=== PATIENT | female | born 1980 | race Caucasian/White ===

== ENCOUNTER 2019-09-01 23:56 | Emergency (ER) | payer SELFPAY ==
[2019-09-02 00:50] VITALS: BP 155/83; PULSE 99; RESP 20; TEMP 36.3; O2SAT 100
[2019-09-02 01:02] VITALS: RESP 20; O2SAT 100
--- NOTE | 2019-09-02 01:08 | ED.EXTPRO ---
HPI - Extremity Problem General Chief complaint: Extremity Problem,Nontraumatic Stated complaint: left hip/groin pain radiating down leg Time Seen by Provider: 09/02/19 01:01 Source: patient and RN notes reviewed Mode of arrival: ambulatory Limitations: no limitations History of Present Illness HPI Narrative: A lt hip pain that radiates into her lt gorin and LLE for a couple days got more severe tonight LLQ no constipation, Related Data Allergies Allergy/AdvReac Type Severity Reaction Status Date / Time Penicillins Allergy Severe Anaphylactic Verified 09/02/19 01:00 Shock acetaminophen [From Vicodin] Allergy Intermediate Nausea and Verified 09/02/19 01:00 Vomiting codeine Allergy Intermediate Nausea and Verified 09/02/19 01:00 [From Tylenol-Codeine #3] Vomiting hydrocodone [From Vicodin] Allergy Intermediate Nausea and Verified 09/02/19 01:00 Vomiting Course Vital Signs Vital signs: Vital Signs Temperature 97.4 F L 09/02/19 00:50 Pulse Rate 99 09/02/19 00:50 Respiratory Rate 20 09/02/19 00:50 Blood Pressure 155/83 H 09/02/19 00:50 Pulse Oximetry 100 09/02/19 00:50 Temperature 97.4 F L 09/02/19 00:50 Pulse Rate 99 09/02/19 00:50 Respiratory Rate 20 09/02/19 01:02 Blood Pressure 155/83 H 09/02/19 00:50 Pulse Oximetry 100 09/02/19 01:02
--- NOTE | 2019-09-02 01:11 | ED.ABDPAIN ---
HPI - Abdominal Pain General Chief Complaint: Extremity Problem,Nontraumatic Stated Complaint: left hip/groin pain radiating down leg Time Seen by Provider: 09/02/19 01:01 Source: patient and RN notes reviewed Mode of arrival: ambulatory Limitations: no limitations History of Present Illness HPI narrative: A 39 y/o female presents to the ED with worsening, intermittent, sharp, LLQ ABD apin for the past couple days. She states that the pain got more severe tonight so she decided to come to the ED. She reports associated urinary frequency. She also notes that the pain radiates into her lt groin and LLE. She denies any constipation, back pain, N/V/D, leg edema, dysuria, or hematuria. MD elicited complaint: abdominal pain Onset (ago): day(s) (a couple) Pain Consistency: intermittent and other (worsening) Location: LLQ Quality: sharp Radiation: other (lt groin and LLE) Associated symptoms: other (urinary frequency) Related Data Allergies Allergy/AdvReac Type Severity Reaction Status Date / Time Penicillins Allergy Severe Anaphylactic Verified 09/02/19 01:00 Shock acetaminophen [From Vicodin] Allergy Intermediate Nausea and Verified 09/02/19 01:00 Vomiting codeine Allergy Intermediate Nausea and Verified 09/02/19 01:00 [From Tylenol-Codeine #3] Vomiting hydrocodone [From Vicodin] Allergy Intermediate Nausea and Verified 09/02/19 01:00 Vomiting Review of Systems Review of Systems: All systems reviewed & are unremarkable except as noted in HPI and below Cardiovascular: Cardiovascular: Denies leg edema Gastrointestinal: Gastrointestinal: Reports abdominal pain (LLQ that radiates into lt groin), Denies constipation, Denies diarrhea, Denies nausea and Denies vomiting Genitourinary: Genitourinary: Denies hematuria, Reports nocturia and Denies dysuria Musculoskeletal: Musculoskeletal: Denies back pain and Reports other (LLE pain radiated from ABD pain) [facility] Past Medical History Medical History (Updated 09/02/19 @ 04:08 by Jac Larsen MD) Patient denies medical problems Surgical History Surgical History (Updated 09/02/19 @ 04:08 by Jac Larsen MD) No significant past surgical history Social History Social History (Updated 09/02/19 @ 04:08 by Jac Larsen MD) Smoking status: Never smoker Exam Narrative: Exam Narrative: GENERAL: Well-appearing, morbidly obese, and in no acute distress. HEAD: Normocephalic, atraumatic. ENT: Mucous membranes moist. CHEST: Clear to auscultation. No respiratory distress. HEART: Regular rate and rhythm. Normal peripheral pulses. ABDOMEN: Soft, nontender, nondistended, no inguinal crease defect or femoral defect that could indicate hernia, normal active bowel sounds. EXTREMITIES: Normal range of motion. No edema. No reproducible tenderness. SKIN: Warm, dry, no rash. NEURO: Alert and oriented x3. Course Course Emergency Course: Patient denies any dark black stools. Has not been told in the past that she is anemic. Will start on iron and give PCP referral. Vital Signs Vital signs: Vital Signs Temperature 97.4 F L 09/02/19 00:50 Pulse Rate 99 09/02/19 00:50 Respiratory Rate 20 09/02/19 00:50 Blood Pressure 155/83 H 09/02/19 00:50 Pulse Oximetry 100 09/02/19 00:50 Temperature 97.4 F L 09/02/19 00:50 Pulse Rate 99 09/02/19 00:50 Respiratory Rate 20 09/02/19 01:02 Blood Pressure 155/83 H 09/02/19 00:50 Pulse Oximetry 100 09/02/19 01:02 MDM - Abdominal Pain Lab Data Result diagrams: 09/02/19 02:37 09/02/19 02:37 Labs: Lab Results 09/02/19 09/02/19 09/02/19 Range/Units 01:36 02:37 02:37 WBC 8.7 (4.5-10.0) K/mm3 RBC 3.97 L (4.2-5.4) M/mm3 Hgb 8.6 L (12.0-15.0) g/dL Hct 29.9 L (37.0-47.0) % MCV 75.3 L (80-100) fl MCH 21.7 L (26-34) pg MCHC 28.8 L (32-36) g/dl RDW 16.4 H (11.5-14.5) % Plt Count 285 (150-375) k/mm3 MPV 10.1 (7.
[2019-09-02] MEDS: KETOROLAC (*BKC) 60 MG/2 ML VIAL IM (01:38)
[2019-09-02 01:43] LABS: Add Urine Microscopic? NO; Appearance Urine Clear (Clear); Bilirubin Urine Negative (Negative); Blood Urine Negative (Negative); Color Urine Yellow (Yellow); Glucose Urine UA Negative (Negative); Ketones Urine Negative (Negative); Leukocyte Esterase Ur Negative LEU/UL (Negative); Nitrate Urine Negative (Negative); Protein Urine Negative (Negative); Specific Grav Ur 1.028 (1.001-1.035); Urobilinogen Urine Negative mg/dL (<2.0)
[2019-09-02 02:43] LABS: Basophils Percent Auto 0.3 % (0.2-1.2); Eosinophils Absolute Auto 0.2 K/mm3 (0-0.3); Eosinophils Percent Auto 2.4 % (0-4.4); Hematocrit 29.9 % (37.0-47.0); Hemoglobin 8.6 g/dL (12.0-15.0); Immature Granulocyte Absolute 0.03 K/mm3 (0.00-0.031); Immature Granulocyte Percent A 0.3 % (0-0.5); Lymphocytes Absolute Auto 2.55 K/mm3 (0.9-3.2); Lymphocytes Percent Auto 29.2 % (18.3-44.2); Mean Corpuscular HGB Conc 28.8 g/dl (32-36); Mean Corpuscular Hemoglobin 21.7 pg (26-34); Mean Corpuscular Volume 75.3 fl (80-100); Mean Platelet Volume 10.1 fl (7.4-10.4); Monocytes Absolute Auto 0.5 K/mm3 (0.1-0.6); Monocytes Percent Auto 5.7 % (2.6-8.5); Neutrophils Absolute Auto 5.4 K/mm3 (1.3-6.7); Neutrophils Percent Auto 62.1 % (45.5-73.1); Platelet Count Result 285 k/mm3 (150-375); Red Blood Count 3.97 M/mm3 (4.2-5.4); Red Cell Distribution Width 16.4 % (11.5-14.5); White Blood Count 8.7 K/mm3 (4.5-10.0)
[2019-09-02 02:57] LABS: Alanine Aminotransferase 18 U/L (4-35); Albumin Level 3.7 g/dL (3.5-5.1); Alkaline Phosphatase 94 U/L (38-126); Aspartate Amino Transferase 22 U/L (14-36); Bilirubin,Total 0.4 mg/dL (0.2-1.3); Blood Urea Nitrogen 15 mg/dL (7-17); Calcium 8.7 mg/dL (8.4-10.2); Carbon Dioxide 27 mmol/L (22-30); Chloride 100 mmol/L (98-107); Estimated Glomerular Filt Rate > 60; Glucose 104 mg/dL (65-105); Sodium 139 mmol/L (137-145)
[2019-09-02 03:20] LABS: Hypochromasia 1+ (NORMAL); Microcytosis 1+ (NORMAL); Ovalocytes 1+ (NORMAL); Platelet Estimate Adequate (Adequate)
[2019-09-02 04:15] VITALS: BP 145/75; PULSE 89; RESP 20; TEMP 36.6; O2SAT 99
== END 2019-09-02 04:17 | disposition home or self-care (01) ==
PROVIDERS: Emergency Provider Emergency Medicine
DX: R10.32 Left lower quadrant pain (principal); D64.9 Anemia, unspecified
CPT/HCPCS: 36415; 80053; 81003; 85025; 96372; 99283; J1885

== ENCOUNTER 2019-09-15 06:18 | Emergency (ER) | payer SELFPAY ==
[2019-09-15 06:21] VITALS: BP 137/96; PULSE 108; RESP 18; TEMP 36.1; O2SAT 100
[2019-09-15 06:43] VITALS: BP 134/101; PULSE 88; RESP 20; TEMP 36.7; O2SAT 100
--- NOTE | 2019-09-15 06:57 | ED.GENADULT ---
HPI - General Adult General Chief complaint: Skin/Abscess/Foreign Body Stated complaint: spider bite? Time Seen by Provider: 09/15/19 06:43 Source: patient Mode of arrival: ambulatory Limitations: no limitations History of Present Illness HPI narrative: 39 yr old with no major medical problems here with a complaints of pain and redness of the right breast, she noticed it las night. Denies any fever or chills. No H/O of any insect bite.or previous skin infections Onset (ago): day(s) (1) Location: chest (right breast) Severity: mild Pain Consistency: constant Exacerbating factors: none Associated symptoms: denies other symptoms Related Data Allergies Allergy/AdvReac Type Severity Reaction Status Date / Time Penicillins Allergy Severe Anaphylactic Verified 09/02/19 01:00 Shock acetaminophen [From Vicodin] Allergy Intermediate Nausea and Verified 09/02/19 01:00 Vomiting codeine Allergy Intermediate Nausea and Verified 09/02/19 01:00 [From Tylenol-Codeine #3] Vomiting hydrocodone [From Vicodin] Allergy Intermediate Nausea and Verified 09/02/19 01:00 Vomiting Review of Systems Constitutional: Constitutional: Reports no additional constitutional complaints Eyes: Eyes: Reports no additional eye complaints ENT: Reports system reviewed and no additional complaints, except as documented Cardiovascular: Cardiovascular: Reports no additional cardiovascular complaints Respiratory: Respiratory: Reports no additional respiratory complaints Gastrointestinal: Gastrointestinal: Reports no additional gastrointestinal complaints [facility] Past Medical History Medical History Patient denies medical problems Surgical History Surgical History (Updated 09/02/19 @ 04:08 by Jac Larsen MD) No significant past surgical history Social History Social History (Updated 09/02/19 @ 04:08 by Jac Larsen MD) Smoking status: Never smoker Gender identity (if verbalized by the patient): Female Exam Const: General: no acute distress and alert Orientation/consciousness: patient oriented x3 Other: Morbidly obese HENMT: Head: normal to inspection Eyes: Conjunctivae: conjunctivae normal Pupils: Equal, round and reactive pupils present Neck: Neck: normal visual inspection Chest: Chest palpation & inspection: normal inspection of the chest Resp: Effort & Inspection: normal respiratory effort Auscultation: clear to auscultation bilaterally Cardio: Rate: regular rate Rhythm: regular rhythm Back/Spine/Pelvis: Back: no CVA tenderness Skin: Other: examinaton of the Right breast, there is a small area of erythema on the medial aspect ,no discharge . Neuro: General: patient oriented x3 and moves all extremities Extrem: General: normal to inspection Psych: Mental Status: mental status grossly normal Course Course Emergency Course: Advised to take antibiotic as prescribed.warm compress. Vital Signs Vital signs: Vital Signs Temperature 36.1 C L 09/15/19 06:21 Pulse Rate 108 H 09/15/19 06:21 Respiratory Rate 18 09/15/19 06:21 Blood Pressure 137/96 H 09/15/19 06:21 Pulse Oximetry 100 09/15/19 06:21 Temperature 36.7 C 09/15/19 06:43 Pulse Rate 88 09/15/19 06:43 Respiratory Rate 20 09/15/19 06:43 Blood Pressure 134/101 H 09/15/19 06:43 Pulse Oximetry 100 09/15/19 06:43 Medical Decision Making Vital Signs Vital Signs: Vital Signs Temperature 36.1 C L 09/15/19 06:21 Pulse Rate 108 H 09/15/19 06:21 Respiratory Rate 18 09/15/19 06:21 Blood Pressure 137/96 H 09/15/19 06:21 Pulse Oximetry 100 09/15/19 06:21 Temperature 36.7 C 09/15/19 06:43 Pulse Rate 88 09/15/19 06:43 Respiratory Rate 20 09/15/19 06:43 Blood Pressure 134/101 H 09/15/19 06:43 Pulse Oximetry 100 09/15/19 06:43 Discharge Plan Discharge Clinical Impression: Cellulitis Patient Disposition: Home, Self-
[2019-09-15 07:32] VITALS: BP 118/75; PULSE 78; RESP 16; O2SAT 100
== END 2019-09-15 07:32 | disposition home or self-care (01) ==
PROVIDERS: Emergency Provider Family Medicine
DX: N61.0 Mastitis without abscess (principal)
CPT/HCPCS: 99283

== ENCOUNTER 2019-12-23 19:47 | Emergency (ER) | payer BC, SELFPAY ==
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
[2019-12-23 19:49] VITALS: BP 156/101; PULSE 120; RESP 20; TEMP 36.4; O2SAT 99
--- NOTE | 2019-12-23 20:20 | PC.NURSE ---
Patient to xray at this time
[2019-12-23 20:30] VITALS: BP 135/85; PULSE 113; RESP 24; TEMP 36.2; O2SAT 97
[2019-12-23 21:38] VITALS: BP 140/99; PULSE 112; RESP 23; TEMP 36.3; O2SAT 97
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
[2019-12-23] MEDS: ONDANSETRON HCL ODT 4 MG TABLET PO (21:43)
[2019-12-23 22:30] VITALS: BP 137/90; PULSE 110; RESP 22; TEMP 36.2; O2SAT 98
--- NOTE | 2019-12-23 23:06 | PC.NURSE ---
Assumed care of pt at this time. report from SIM Roland
[2019-12-23 23:42] VITALS: BP 130/86; PULSE 110; RESP 12; O2SAT 97
== END 2019-12-23 23:45 | disposition home or self-care (01) ==
PROVIDERS: Emergency Provider Emergency Medicine
DX: M54.2 Cervicalgia (principal); R51 Headache; S20.111A Abrasion of breast, right breast, initial encounter; J34.1 Cyst and mucocele of nose and nasal sinus; V49.40XA Driver injured in collision with unspecified motor vehicles in traffic accident, initial encounter
CPT/HCPCS: 70450; 71046; 72125; 73030; 99284; A9270

== ENCOUNTER 2020-04-13 20:56 | Emergency (ER) | payer BC, SELFPAY ==
--- NOTE | ~2020-04-13 | XR_ITS ---
EXAMINATION: XR hand LT min 3V INDICATION: Left hand pain TECHNIQUE: Three views of the left hand are obtained. COMPARISON: None available FINDINGS: There is no fracture, dislocation, or subluxation. The bones, soft tissues, and joint space s are normal. IMPRESSION: 1. No acute osseous abnormality. Reviewed, dictated and finalized at location A.
[2020-04-13 21:01] VITALS: BP 163/102; PULSE 98; RESP 24; TEMP 36.6; O2SAT 98
--- NOTE | 2020-04-13 21:36 | ED.UPPEXIN ---
HPI - Extremity Injury (Upper) General Chief Complaint: Extremity Injury, Upper Stated Complaint: left hand injury s/p fall Time Seen by Provider: 04/13/20 21:02 Source: patient Mode of arrival: ambulatory Limitations: no limitations History of Present Illness HPI narrative: This is a 39 year old female that presents to the ER after a fall today with left hand pain. Reports she slipped on dog pee and fell. Reports she landed on her left hand. Reports since she has had pain, especially in the left 3rd and 4th fingers. Reports tingling in the fingers. Denies other injuries, decreased ROM, hitting her head, loss of consciousness, or numbness. Related Data Home Medications Medication Instructions Recorded Confirmed No Home Medications 04/13/20 04/13/20 Allergies Allergy/AdvReac Type Severity Reaction Status Date / Time Penicillins Allergy Severe Anaphylactic Verified 04/13/20 21:05 Shock codeine Allergy Intermediate Nausea and Verified 04/13/20 21:05 [From Tylenol-Codeine #3] Vomiting hydrocodone [From Vicodin] Allergy Intermediate Nausea and Verified 04/13/20 21:05 Vomiting Review of Systems Review of Systems: Narrative: CONSTITUTIONAL: Denies fever MUSCULOSKELETAL: Reports joint pain, and myalgia. NEUROLOGIC: Denies numbness All systems reviewed & are unremarkable except as noted in HPI and below PMFSH Past Medical History Medical History (Updated 04/13/20 @ 21:45 by Samara Dahl PA-C) Patient denies medical problems Surgical History Surgical History (Updated 04/13/20 @ 21:41 by Samara Dahl PA-C) H/O repair of patent ductus arteriosus Social History Social History (Updated 12/23/19 @ 21:41 by Nuvia Johnston MD) Smoking status: Never smoker Alcohol intake: never Substance use: never Gender identity (if verbalized by the patient): Female Exam Narrative: Exam Narrative: GENERAL: Well-appearing, well-nourished, and in no acute distress. HEAD: Normocephalic, atraumatic. EYES: EOMI. EXTREMITIES: Normal range of motion. No edema or obvious deformity. Normal sensation. Normal radial pulses SKIN: Warm, dry, no rash. NEURO: No focal deficits. Alert and oriented x3. PSYCH: Normal mood and affect Course Vital Signs Vital signs: Vital Signs Temperature 97.8 F 04/13/20 21:01 Pulse Rate 98 04/13/20 21:01 Respiratory Rate 24 H 04/13/20 21:01 Blood Pressure 163/102 H 04/13/20 21:01 Pulse Oximetry 98 04/13/20 21:01 Temperature 97.8 F 04/13/20 21:01 Pulse Rate 98 04/13/20 21:01 Respiratory Rate 24 H 04/13/20 21:01 Blood Pressure 163/102 H 04/13/20 21:01 Pulse Oximetry 98 04/13/20 21:01 MDM - Extremity Injury (Upper) MDM Narrative Medical decision making narrative: Patient resents the emergency department for left hand pain after an injury today. Left hand x-rays without acute findings. Patient placed in Gwyn wrap and instructed to rest, ice, and take [id number] pain medication as needed. She is to follow-up with primary care doctor. She was given warnings to return to the ER Imaging Data Radiologist's impression: ITS Impressions Hand X-Ray 04/13/20 21:20 IMPRESSION: 1. No acute osseous abnormality. Critical Care Time Critical Care Time Critical Care Time: No Discharge Plan Discharge Clinical Impression: Sprain of hand, left Qualifiers: Encounter type: initial encounter Qualified Code(s): S63.92XA - Sprain of unspecified part of left wrist and hand, initial encounter High blood pressure Qualifiers: Hypertension type: unspecified Qualified Code(s): I10 - Essential (primary) hypertension Patient Disposition: Home, Self-Care Condition: Stable Instructions: Hand Sprain (ED) Additional Instructions: Return to the ER if you experience fever, redness and swelling of your arm, weakness, numbness, or any other symptoms that are concerning to you Rest, use ice, take anti-inflammatories (Aleve, Ibuprof
[2020-04-13] MEDS: KETOROLAC (*BKC) 60 MG/2 ML VIAL IM (22:08)
[2020-04-13 22:14] VITALS: BP 152/99; PULSE 90; RESP 16; O2SAT 99
== END 2020-04-13 22:16 | disposition home or self-care (01) ==
PROVIDERS: Emergency Provider Emergency Medicine
DX: S63.92XA Sprain of unspecified part of left wrist and hand, initial encounter (principal); I10 Essential (primary) hypertension; W01.0XXA Fall on same level from slipping, tripping and stumbling without subsequent striking against object, initial encounter
CPT/HCPCS: 73130; 96372; 99283; J1885